=== PATIENT | female | born 1940 | race Caucasian/White ===

== ENCOUNTER 2016-07-12 10:00 | Emergency (ER) | payer MEDICARE, OTHER ==
[2016-07-12] MEDS ORDERED: Adacel Vial IM ONE ×2 (10:03→10:25)
[2016-07-12] MEDS ORDERED: BACIGUENT PACKET TP ONE (10:03)
--- NOTE | 2016-07-12 10:13 | ERPHSYRPT ---
- History of Present Illness Time Seen by Provider: 07/12/16 10:03 Source: patient Exam Limitations: no limitations Physician History: This is a 75-year-old white female with history of atherosclerotic coronary artery disease who is on Plavix, She arrives with complaint of puncture wound 2 on the left dorsal forearm since one half hour prior to arrival. Patient states that she was having bleeding from the area which has now slowed she does have a small hematoma on the left dorsal forearm. According to the patient she was clipping roses and accidentally cut her forearm with wire which ran into her left forearm she does not believe that any of the wire has broken off. Past medical history includes atherosclerotic coronary artery disease, Crohn's, osteoarthritis, arthritis, rheumatoid arthritis, GERD, hyperlipidemia, high blood pressure. Past surgical history includes vein stripping lower legs, cardiac stent, tonsillectomy and adenoidectomy, cataracts, hysterectomy. Occurred: just prior to arrival (on half hour prior to arrival) Method of Injury: other (cutting roses and had wire which penetrated into patient's left distal dorsal forearm) Quality: sharpness Severity of Pain-Max: mild Severity of Pain-Current: mild Extremities Pain Location: forearm: left Modifying Factors: Improves With: nothing Associated Symptoms: none, other (laceration/puncture wound 2 left dorsal forearm, small hematoma left dorsal forearm) Allergies/Adverse Reactions: aspirin Allergy (Mild, Verified 07/12/16 10:08) Stomach Cramps PT HAS ABNORMAL BLEEDING DUE TO CHRONS prednisone Allergy (Mild, Verified 07/12/16 10:08) Stomach Pain IRREGULAR BLEEDING DUE TO CHRONS morphine Allergy (Verified 07/12/16 10:08) Home Medications: Amlodipine Besylate 5 mg [Norvasc 5 mg] 2.5 mg PO DAILY 11/21/14 [History] Clopidogrel Bisulfate 75 mg [PLAVIX 75 MG Tablet] 0.5 tablet PO 11/21/14 [ History] Isosorbide Mononitrate 30 mg [Imdur 30 MG] 30 mg PO DAILY 11/21/14 [History ] Lisinopril 20 mg [Zestril 20 MG] 20 mg PO DAILY 11/21/14 [History] Mesalamine [Pentasa] 2,000 mg PO BID 11/21/14 [History] Metoprolol Succinate 100 mg [Toprol Xl 100 MG] 100 mg PO DAILY 11/21/14 [ History] Pravastatin Sodium 20 mg PO DAILY 11/21/14 [History] Tramadol HCl 50 mg [Ultram 50 mg] 50 mg PO TID 11/21/14 [History] Triamterene/Hydrochlorothiazid [Triamterene-Hctz 37.5-25 mg Cp] 0.5 tab PO DAILY 11/21/14 [History] Hx Tetanus, Diphtheria Vaccination/Date Given: No (UNKNOWN) Hx Influenza Vaccination/Date Given: Yes Hx Pneumococcal Vaccination/Date Given: Yes - Review of Systems Constitutional: No Fever, No Chills Eyes: No Symptoms Ears, Nose, & Throat: No Symptoms Respiratory: No Cough, No Dyspnea Cardiac: No Chest Pain, No Edema, No Syncope Abdominal/Gastrointestinal: No Abdominal Pain, No Nausea, No Vomiting, No Diarrhea Genitourinary Symptoms: No Dysuria Musculoskeletal: Injury, Other (Laceration/puncture wound 2 left dorsal forearm , small hematoma left dorsal distal forearm) Skin: Other (laceration/puncture wound 2 left dorsal distal forearm, small hematoma left dorsal forearm) Neurological: No Dizziness, No Focal Weakness, No Sensory Changes Psychological: No Symptoms Endocrine: No Symptoms All Other Systems: Reviewed and Negative - Past Medical History Pertinent Past Medical History: Yes Neurological History: Other ENT History: No Pertinent History Cardiac History: Coronary Artery Disease, High Cholesterol, Hypertension Respiratory History: No Pertinent History Endocrine Medical History: No Pertinent History Musculoskeletal History: Arthritis, Osteoarthritis, Rheumatoid Arthritis GI Medical History: Crohns Disease, GERD History: No Pertinent History Psycho-Social History: No Pertinent History Female Reproductive Disorders: No Pertinent History Other Medical History: FREQUENT HALEY FROM SINUSES - Past Surgical History Past Surgical History: Yes Neuro Surgical History: No Pertinent History Cardiac: Cardiac Catheterization, Cardiac Stent Respiratory: No Pertinent History Gastrointestinal: No Pertinent History Genitourinary: No Pertinent History Musculoskeletal: Orthopedic Surgery Female Surgical History: Hysterectomy Other Surgical History: VEINS STRIPPED IN LEGS 2 YRS AGO. TONSILS ET ADNOIDS. CATARACT REMOVALS - Social History Smoking Status: Never smoker Exposure to second hand smoke: No Drug Use: none Patient Lives Alone: No - Physical Exam General Appearance: alert Eyes, Ears, Nose, Throat Exam: moist mucous membranes Neck Exam: non-tender, supple Cardiovascular/Respiratory Exam: chest non-tender, normal breath sounds, regular rate/rhythm, no respiratory distress Abdominal Exam: non-tender, No guarding Back Exam: normal inspection, No vertebral tenderness Shoulder Exam: normal inspection, non-tender, no evidence of injury, normal ROM Elbow/Forearm Exam: normal inspection, non-tender, normal ROM, No no evidence of injury (puncture wound 2 left dorsal distal forearm with small 2 cm hematoma dorsal distal forearm) Hand Exam: normal inspection, non-tender, no evidence of injury, normal ROM DTR - Upper Extremity Exam: tricep (R): 2+, tricep (L): 2+ Neuro/Tendon Exam: normal sensation, normal motor functions, normal tendon functions, no evidence tendon injury, No motor deficit, No sensory deficit Mental Status Exam: alert, oriented x 3, cooperative Skin Exam: other (small puncture wounds proximately 0.5 cm 2 left dorsal distal forearm, small 2 cm hematoma left dorsal forearm) SpO2 Interpretation: normal - Course Nursing assessment & vital signs reviewed: Yes Ordered Tests: Active Orders 24 hr Category Date Time Status Nir Bandage Application -[facility] STAT Care 07/12/16 10:04 Active Wound Care STAT Care 07/12/16 10:03 Active Medication Summary Discontinued Medications Generic Name Dose Route Start Last Admin Trade Name Freq PRN Reason Stop Dose Admin Bacitracin 0.9 gm 07/12/16 10:03 Baciguent Packet TP 07/12/16 10:04 STAT ONE Diphtheria/Tetanus/Acell Pertussis 0.5 ml 07/12/16 10:03 Adacel Vial IM 07/12/16 10:04 .ONCE ONE - Progress Progress: improved Progress Note: 07/12/16 10:13 This is a 75-year-old white female who arrives with complaint of puncture wounds 2 secondary to wire, on her dorsal distal forearm which she suffered while trimming roses one half hour prior to arrival. Patient is on Plavix that she came in because she is quite sick concern initially had bleeding to the area which has now subsided. She has 2 small 0.5 cm puncture wounds to the dorsal distal forearm with surrounding 2 cm hematoma to the area. She has full range of motion to the left hand wrist elbow. She has good capillary refill to all fingers sensation intact to all fingers radial and ulnar pulses are intact and symmetrical 2 over 4. Will have nurse clean the area, apply bacitracin and apply Nir wrap to the area. Will update the patient's DTaP. The patient does not feel like she had any foreign bodies introduced into her skin. 07/12/16 10:15 Patient has been offered Tylenol for pain she really doesn't want any pain medications at this time she states she has Tylenol and tramadol at home if she needs to take this. - Departure Time of Disposition: 10:16 Departure Disposition: Home Clinical Impression: Puncture wound of left forearm Qualifiers: Encounter type: initial encounter Qualified Code(s): S51.832A - Puncture wound without foreign body of left forearm, initial encounter Condition: Fair Critical Care Time: No Instructions: Care for a Laceration After Repair Additional Instructions: Return home. Cool packs and elevate left forearm 24-48 hours. Bacitracin to area daily until healed. Tylenol every 4 hours as needed for pain. Follow-up with your family doctor or return signs of infection or problems. Return for acute distress or for severe symptoms.
[2016-07-12 10:24] VITALS: O2SAT 96
[2016-07-12] MEDS ORDERED: BACIGUENT PACKET ONE (10:26)
[2016-07-12 10:59] VITALS: BP 150/70; PULSE 62
== END 2016-07-12 10:58 | disposition home or self-care (01) ==
LOC: ED 10:00
DX: S51.832A Puncture wound without foreign body of left forearm, initial encounter (principal); Z79.01 Long term (current) use of anticoagulants; Z79.899 Other long term (current) drug therapy; W45.8XXA Other foreign body or object entering through skin, initial encounter; Y93.H2 Activity, gardening and landscaping; I10 Essential (primary) hypertension; I25.10 Atherosclerotic heart disease of native coronary artery without angina pectoris; E78.5 Hyperlipidemia, unspecified
CPT/HCPCS: 99284; A9270; 90471; 90715; 99282; 99283